=== PATIENT | female | born 1985 | race Caucasian/White ===

== ENCOUNTER 2018-04-19 08:06 | Emergency (ER) | payer OTHER ==
[2018-04-19 08:10] VITALS: TEMP 98.5; BMI 41.0
[2018-04-19 08:12] VITALS: BP 136/90; PULSE 84
--- NOTE | 2018-04-19 08:46 | PDOC ---
History of Present Illness - General Chief Complaint: Sore Throat Stated Complaint: SORE THROAT Time Seen by Provider: 04/19/18 08:18 History Source: Patient (Patient walked in complaining of sore throat) Exam Limitations: No Limitations - History of Present Illness Timing/Duration: 24 hours Severity: mild, moderate Modifying Factors: improves with: medication, rest Associated Symptoms: reports: fever/chills, shortness of breath Past History - Travel Traveled outside of the country in the last 30 days: No Close contact w/someone who was outside of country & ill: No - Past Medical History Allergies/Adverse Reactions: Allergies Allergy/AdvReac Type Severity Reaction Status Date / Time No Known Allergies Allergy Verified 04/19/18 08:06 Home Medications: Ambulatory Orders Albuterol Sulfate Inhaler - [Ventolin Hfa Inhaler -] 1 - 2 inh PO QID 07/21/15 Albuterol Sulfate Inhaler - [Ventolin HFA Inhaler -] 1 puff IH Q4H #1 inhaler Amoxicillin/Potassium Clav [Augmentin 875-125 Tablet] 1 each PO BID #20 tablet 04/19/18 Asthma: Yes COPD: No DVT: No - Surgical History GI Surgery: Yes (C section) - Suicide/Smoking/Psychosocial Hx Smoking Status: No Smoking History: Never smoked Have you smoked in the past 12 months: No Number of Cigarettes Smoked Daily: 0 Hx Alcohol Use: No Drug/Substance Use Hx: No Substance Use Type: Alcohol Review of Systems - Review of Systems Able to Perform ROS?: Yes Is the patient limited Surinamese proficient: Yes Constitutional: Yes: Symptoms Reported, Chills, Malaise HEENTM: Yes: Symptoms Reported, See HPI Respiratory: Yes: Symptoms reported, See HPI ABD/GI: No: Symptoms Reported, See HPI, Abdominal Distended, Abd. Pain w/ defecation, Blood Streaked Bowels, Constipated, Diarrhea, Difficulty Swallowing , Nausea, Poor Appetite, Poor Fluid Intake, Rectal Bleeding, Vomiting, Indigestion, Abdominal cramping, Tarry Stools, Other All Other Systems: Reviewed and Negative *Physical Exam - Vital Signs Last Vital Signs Temp Pulse Resp BP Pulse Ox 98.5 F 84 17 136/90 100 04/19/18 08:06 04/19/18 08:06 04/19/18 08:06 04/19/18 08:06 04/19/18 08:06 - Physical Exam General Appearance: Yes: Nourished, Appropriately Dressed, Mild Distress, Moderate Distress HEENT: positive: ALEXX, Pharyngeal Erythema, Nasal Congestion Neck: positive: Supple Respiratory/Chest: positive: Other (occasional few wheezes over chest) Cardiovascular: positive: Regular Rhythm, Regular Rate Gastrointestinal/Abdominal: positive: Normal Bowel Sounds Extremity: positive: Normal Capillary Refill Integumentary: positive: Normal Color Neurologic: positive: Fully Oriented, Alert, Normal Mood/Affect *DC/Admit/Observation/Transfer Diagnosis at time of Disposition: Strep pharyngitis - Discharge Dispostion Disposition: HOME Condition at time of disposition: Stable Decision to Admit order: No - Prescriptions Prescriptions: Albuterol Sulfate Inhaler - [Ventolin HFA Inhaler -] 1 puff IH Q4H #1 inhaler Amoxicillin/Potassium Clav [Augmentin 875-125 Tablet] 1 each PO BID #20 tablet - Referrals - Patient Instructions Printed Discharge Instructions: DI for Strep Throat Additional Instructions: Fluids, rest, Tylenol if fever - Post Discharge Activity Forms/Work/School Notes: Back to Work
[2018-04-19] MEDS ORDERED: ALBUTEROL SO4 2.5/IPRATROPIUM 0.5 INH SOL 3 ML VIAL.NEB. NEB ONE (09:21)
[2018-04-19] MEDS ORDERED: ALBUTEROL SO4 0.083% IH SOL 2.5 MG/3 ML VIAL.NEB. NEB ONE (09:22)
== END 2018-04-19 09:44 | disposition home or self-care (01) ==
LOC: FER 08:06
PROC: 3E0F7GC Introduction of Other Therapeutic Substance into Respiratory Tract, Via Natural or Artificial Opening (ICD-10-PCS; principal; 2018-04-19)
DX: J02.0 Streptococcal pharyngitis (principal); J45.909 Unspecified asthma, uncomplicated
CPT/HCPCS: 87070; 87077; 87430; 99281-25

== ENCOUNTER 2018-08-14 10:37 | Emergency (ER) | payer OTHER ==
[2018-08-14 10:42] VITALS: BP 154/83; PULSE 75; TEMP 97.8; BMI 41.0
--- NOTE | 2018-08-14 10:43 | PDOC ---
History of Present Illness - General Chief Complaint: Respiratory Stated Complaint: DRY COUGH, SOB Time Seen by Provider: 08/14/18 10:40 History Source: Patient Exam Limitations: No Limitations - History of Present Illness Initial Comments: 08/14/18 10:48 33 year old female with PMH asthma presented to ED for chest tightness, SOB since last night. Pt admitted to nonproductive cough x2 weeks. She stated that in 05/2018 she and her son had a URI, and since then her asthma has been worse. She stated prior to 05/2018 she used her rescue inhaler 1X a year, and since she has been using it every day. She denied fever, chills, nausea, vomiting, abdominal pain, chest pain, sputum production. allergies: NKDA Past History - Past Medical History Allergies/Adverse Reactions: Allergies Allergy/AdvReac Type Severity Reaction Status Date / Time No Known Allergies Allergy Verified 08/14/18 10:38 Home Medications: Ambulatory Orders Albuterol Sulfate Inhaler - [Ventolin HFA Inhaler -] 1 puff IH Q4H #1 inhaler Albuterol 0.083% Nebulizer Evelia [Ventolin 0.083% Nebulizer Soln -] 1 neb NEB Q4H PRN #30 vial 08/14/18 Nebulizer Accessories [Adult Aerosol Mask] 1 each QID #1 each 08/14/18 Nebulizer [Sinustar] 1 each QID #1 each 08/14/18 Prednisone [Deltasone] 60 mg PO DAILY #12 tablet 08/14/18 Asthma: Yes COPD: No DVT: No - Surgical History GI Surgery: Yes (C section) - Suicide/Smoking/Psychosocial Hx Smoking Status: No Smoking History: Never smoked Have you smoked in the past 12 months: No Number of Cigarettes Smoked Daily: 0 Information on smoking cessation initiated: No Hx Alcohol Use: No Drug/Substance Use Hx: No Substance Use Type: Alcohol Review of Systems - Review of Systems Able to Perform ROS?: Yes Comments:: 08/14/18 10:50 General: denied fever, chills, night sweats, generalized weakness. HEENT: denied sore throat, rhinorrhea, ear pain. Heart: admitted to chest tightness. denied chest pain, palpitations, syncope, lower extremity swelling, diaphoresis. Respiratory: admitted to shortness of breath, cough. denied sputum production, hemoptysis. Abdomen: denied abdominal pain, nausea, vomiting, diarrhea, constipation, blood in stool. : denied dysuria, increased urinary frequency, hematuria, urinary incontinence , flank pain. Back: denied back pain. Musculoskeletal: denied joint pain, muscle pain, joint swelling. Neurological: denied headache, dizziness, numbness, tingling, weakness. Skin: denied rash, laceration, abrasion. *Physical Exam - Vital Signs Last Vital Signs Temp Pulse Resp BP Pulse Ox 97.8 F 75 22 H 154/83 100 08/14/18 10:37 08/14/18 10:37 08/14/18 10:37 08/14/18 10:37 08/14/18 10:37 - Physical Exam Comments: 08/14/18 10:50 Constitutional: Well-nourished, Well-developed, appearing stated age. coughing. HEENT: head is normocephalic, atraumatic. EOMI. PERRLA. Neck: supple. Full ROM. Heart: regular rhythm. no murmurs, rubs or gallops. Lungs: clear to auscultation bilaterally. no crackles, rhonchi or wheezing. no stridor. Abdomen: soft, nontender. normal bowel sounds. no rebound, guarding, masses. Extremities: Peripheral pulses intact. No lower extremity edema. Neurological: CN 2-12 grossly intact. Moves all four extremities. Psych: awake, alert, oriented x3. Follows commands. Answers questions appropriately. Moderate Sedation - Procedure Monitoring Vital Signs: Procedure Monitoring Vital Signs Temperature 97.8 F 08/14/18 10:37 Pulse Rate 75 08/14/18 10:37 Respiratory Rate 22 H 08/14/18 10:37 Blood Pressure 154/83 08/14/18 10:37 O2 Sat by Pulse Oximetry (%) 100 08/14/18 10:37 Medical Decision Making - Medical Decision Making 08/14/18 10:51 33 year old female with above PMH presented to ED for nonproductive cough, chest tightness, SOB. She admitted to increasing asthma exacerbations since 2017. Initial Vital Signs Temp Pulse Resp BP Pulse Ox 97.8 F 75 22 H 154/83 100 08/14/18 10:37 08/14/18 10:37 08/14/18 10:37 08/14/18 10:37 08/14/18 10:37 Afebrile. No tachycardia. Tachypneic. Mild hypertension. No hypoxia on room air. Labs ordered: none Imaging ordered: none Medications ordered: duonebx3, prednisone 60 mg PO 08/14/18 11:42 Pt reported improvement of symptoms. Pt to be discharged with prednisone prescription, nebulizer prescription and instructions for PCP follow up. *DC/Admit/Observation/Transfer Diagnosis at time of Disposition: Shortness of breath, Asthma - Discharge Dispostion Disposition: HOME Condition at time of disposition: Improved Decision to Admit order: No - Prescriptions Prescriptions: Albuterol 0.083% Nebulizer Evelia [Ventolin 0.083% Nebulizer Soln -] 1 neb NEB Q4H PRN #30 vial PRN Reason: Short Of Breath/Wheezing Nebulizer [Sinustar] 1 each MC QID #1 each Nebulizer Accessories [Adult Aerosol Mask] 1 each MC QID #1 each Prednisone [Deltasone] 60 mg PO DAILY #12 tablet - Referrals Referrals: Ellyn Adams [Primary Care Provider] - - Patient Instructions Printed Discharge Instructions: DI for Asthma -- Adult Additional Instructions: You were seen today for an asthma exacerbation. I have sent a prescription for steroids and a nebulizer to your pharmacy, use as advised on labels. Follow up with your primary care doctor in 1-2 days. Return to the Emergency Department for shortness of breath, coughing up blood, swelling in calves, or any other new , worsening or concerning symptoms. - Post Discharge Activity Forms/Work/School Notes: Back to Work
[2018-08-14] MEDS ORDERED: ALBUTEROL SO4 2.5/IPRATROPIUM 0.5 INH SOL 3 ML VIAL.NEB. NEB ONE ×2 (10:47→10:57)
[2018-08-14] MEDS ORDERED: predniSONE 20 MG TABLET (UD) PO ONE ×2 (10:48→10:54)
[2018-08-14] MEDS ORDERED: predniSONE 20 MG TABLET (UD) ONE (10:57)
--- NOTE | 2018-08-14 11:35 | PDOC ---
Attending Attestation - Resident Resident Name: Kaitlin English - ED Attending Attestation I have performed the following: I have examined & evaluated the patient, The case was reviewed & discussed with the resident, I agree w/resident's findings & plan, Exceptions are as noted - HPI HPI: 08/14/18 10:56 33 year old female with hx of asthma presents with some increasing SOB, chest tightness x 2 weeks. Pt reports that she feels like her asthma is acting up. Typically when this occurs, pt uses her albuterol pump, but didn't work so much. Now, reports some nonproductive cough. No fevers, chills. Came in for an evaluation. - Physicial Exam PE: 08/14/18 11:35 GENERAL: Awake, alert, and fully oriented, in no acute distress HEAD: No signs of trauma EYES:EOMI, sclera anicteric, conjunctiva clear ENT: Auricles normal inspection, hearing grossly normal, nares patent, es. Moist mucosa NECK: Normal ROM, supple, LUNGS: Tight breath sounds but breathing comfortably. HEART: Regular rate and rhythm, normal S1 and S2, no murmurs, rubs or gallops EXTREMITIES: Normal range of motion, no edema. No clubbing or cyanosis. No cords, erythema, or tenderness NEUROLOGICAL: Cranial nerves II through XII grossly intact. Normal speech, normal gait SKIN: Warm, Dry, normal turgor, no rashes or lesions noted. - Medical Decision Making 08/14/18 11:35 Vital Signs Temp Pulse Resp BP Pulse Ox 97.8 F 75 22 H 154/83 100 08/14/18 10:37 08/14/18 10:37 08/14/18 10:37 08/14/18 10:37 08/14/18 10:37 Imp: asthma exacerbation with likely viral bronchitis. Duonebs and prednisone. Pt reported feeling much after the treatments. Will d/c home with prednisone and supportive care. I discussed the physical exam findings, ancillary test results and final diagnoses with the patient. I answered all of the patient's questions. The patient was satisfied with the care received and felt comfortable with the discharge plan and treatment plan. The patient will call their primary care physician within 24 hours to arrange follow-up and will return to the Emergency Department with any new, persistant or worsening symptoms. *DC/Admit/Observation/Transfer Diagnosis at time of Disposition: Shortness of breath, Asthma - Discharge Dispostion Disposition: HOME Condition at time of disposition: Stable - Prescriptions Prescriptions: Albuterol 0.083% Nebulizer Evelia [Ventolin 0.083% Nebulizer Soln -] 1 neb NEB Q4H PRN #30 vial PRN Reason: Short Of Breath/Wheezing Nebulizer [Sinustar] 1 each MC QID #1 each Nebulizer Accessories [Adult Aerosol Mask] 1 each MC QID #1 each Prednisone [Deltasone] 60 mg PO DAILY #12 tablet - Referrals Referrals: Ellyn Adams [Primary Care Provider] - - Patient Instructions Printed Discharge Instructions: DI for Asthma -- Adult Additional Instructions: You were seen today for an asthma exacerbation. I have sent a prescription for steroids and a nebulizer to your pharmacy, use as advised on labels. Follow up with your primary care doctor in 1-2 days. Return to the Emergency Department for shortness of breath, coughing up blood, swelling in calves, or any other new , worsening or concerning symptoms. - Post Discharge Activity Forms/Work/School Notes: Back to Work
== END 2018-08-14 11:40 | disposition home or self-care (01) ==
LOC: FER 10:37
PROC: 3E0F7GC Introduction of Other Therapeutic Substance into Respiratory Tract, Via Natural or Artificial Opening (ICD-10-PCS; principal; 2018-08-14)
DX: R06.02 Shortness of breath (principal); J45.909 Unspecified asthma, uncomplicated
CPT/HCPCS: 99283-25